=== PATIENT | female | born 1975 | race Caucasian/White ===

== ENCOUNTER 2021-05-07 20:08 | Emergency (ER) | payer OTHER, SELFPAY ==
--- NOTE | ~2021-05-07 | XR_ITS ---
XR chest 2V DATE: 05/07/2021 21:04 INDICATION: Left chest pain radiating to upper back. Shortness of breath with exertion. TECHNIQUE: PA and lateral views COMPARISON: None FINDINGS: Normal heart size. No hilar or mediastinal enlargement. No pulmonary infiltrate or consolidation, pleural effusion or pulmonary vascular congestion or pneumo thorax. Degenerative spurring of the thoracic spine. IMPRESSION: No active cardiopulmonary disease Reviewed, dictated and finalized at location A. HER STRETCHER
[2021-05-07 20:29] VITALS: BP 151/83; PULSE 92; RESP 18; TEMP 37; O2SAT 99
--- NOTE | 2021-05-07 20:35 | ECG_ITS ---
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
[2021-05-07 21:13] LABS: Basophils Percent Auto 0.1 % (0.2-1.2); Eosinophils Percent Auto 0.1 % (0-4.4); Hemoglobin 12.4 g/dL (12.0-15.0); Immature Granulocyte Absolute 0.03 K/mm3 (0.00-0.031); Immature Granulocyte Percent A 0.4 % (0-0.5); Lymphocytes Absolute Auto 2.13 K/mm3 (0.9-3.2); Lymphocytes Percent Auto 26.8 % (18.3-44.2); Mean Corpuscular HGB Conc 32.6 g/dl (32-36); Mean Corpuscular Hemoglobin 30.5 pg (26-34); Mean Corpuscular Volume 93.4 fl (80-100); Mean Platelet Volume 10.4 fl (7.4-10.4); Monocytes Absolute Auto 0.6 K/mm3 (0.1-0.6); Monocytes Percent Auto 7.8 % (2.6-8.5); Neutrophils Absolute Auto 5.1 K/mm3 (1.3-6.7); Neutrophils Percent Auto 64.8 % (45.5-73.1); Platelet Count Result 203 k/mm3 (150-375); Red Blood Count 4.07 M/mm3 (4.2-5.4); Red Cell Distribution Width 12.5 % (11.5-14.5); White Blood Count 7.9 K/mm3 (4.5-10.0)
[2021-05-07 21:24] LABS: Alanine Aminotransferase 16 U/L (4-35); Alkaline Phosphatase 49 U/L (38-126); Anion Gap 6 mmol/L (8-16); Aspartate Amino Transferase 18 U/L (14-36); Bilirubin,Total 0.4 mg/dL (0.2-1.3); Blood Urea Nitrogen 20 mg/dL (7-17); Calcium 8.7 mg/dL (8.4-10.2); Carbon Dioxide 29 mmol/L (22-30); Chloride 100 mmol/L (98-107); Estimated CRCL calculation 96 ml/min; Estimated Glomerular Filt Rate 60; Glucose 102 mg/dL (65-110); Lipase 94 U/L (23-300); Potassium 4.1 mmol/L (3.4-5.0); Sodium 135 mmol/L (137-145)
[2021-05-07 21:27] LABS: INR 0.9; Prothrombin Time 12.5 Seconds (11.1-14.7)
[2021-05-07 21:35] LABS: Troponin I < 0.012 ng/mL (0.000-0.034)
[2021-05-07 23:30] VITALS: BP 132/80; PULSE 94; RESP 20; TEMP 37.1; O2SAT 97
[2021-05-08 01:40] VITALS: BP 128/88; PULSE 71; RESP 18; O2SAT 98
[2021-05-08 02:33] LABS: Troponin I < 0.012 ng/mL (0.000-0.034)
[2021-05-08 03:59] VITALS: BP 137/88; PULSE 86; RESP 16; O2SAT 99
--- NOTE | 2021-05-08 04:01 | ED.GENADULT ---
HPI - General Adult General Chief complaint: Chest Pain Stated complaint: Chest pain, Its pain in my lungs Time Seen by Provider: 05/08/21 02:11 History of Present Illness HPI narrative: Patient is a 43-year-old female presents the emergency department with chief complaint of chest pain. Patient reports over the last several days has been having discomfort in her chest patient states she saw her primary care physician who did a D-dimer and that ended up doing a CTA of her chest. The CTA showed no evidence of pulmonary nihilism reports that there was some granulomatous disease and also noticed possible pulmonary hypertension. 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 Patient states that the symptoms or not improved by anything or they worsened by anything. Related Data Home Medications Medication Instructions Recorded Confirmed diclofenac sodium 75 mg PO BID 05/08/21 05/08/21 esomeprazole magnesium [Nexium] 40 mg PO DAILY 05/08/21 05/08/21 famotidine [Pepcid] 20 mg PO DAILY 05/08/21 05/08/21 valsartan-hydrochlorothiazide 1 tablet PO DAILY 05/08/21 05/08/21 Allergies Allergy/AdvReac Type Severity Reaction Status Date / Time amoxicillin Allergy Unknown Nausea Verified 09/26/16 04:05 chocolate flavor Allergy Unknown Verified 11/24/10 14:25 ranitidine Allergy Unknown Verified 11/24/10 14:25 tramadol Allergy Unknown Itching Verified 09/26/16 04:05 Review of Systems Review of Systems: A 10 system review of systems was completed on the patient and is negative except for what is stated in the HPI. Nursing and ancillary documentation was reviewed. PMFSH Family History Family History Grandparent Cerebrovascular accident Family history of malignant neoplasm of breast Family history of coronary artery disease Diabetes mellitus Mother Family history of diabetes mellitus in first degree relative Social History Social History Alcohol intake: never Exam Narrative: GENERAL: Well-appearing, well-nourished, and in no acute distress. HEAD: Normocephalic, atraumatic. EYES: PERRLA and EOMI. ENT: Nares clear, no rhinorrhea or epistaxis. Mucous membranes moist. NECK: Supple. CHEST: Clear to auscultation. No respiratory distress. HEART: Regular rate and rhythm. No murmur heard. Normal peripheral pulses. ABDOMEN: Soft, nontender, nondistended, normal active bowel sounds. EXTREMITIES: Normal range of motion. No edema. SKIN: Warm, dry, no rash. NEURO: No focal deficits. Alert and oriented x3. PSYCH: Normal mood and affect. Course Course Emergency Course: EKG is sinus rhythm rate of [address] elevation or ST depression Troponin is negative x2 sets Vital Signs Vital signs: Vital Signs Temperature 37.0 C 05/07/21 20:29 Pulse Rate 92 05/07/21 20:29 Respiratory Rate 18 05/07/21 20:29 Blood Pressure 151/83 H 05/07/21 20:29 Pulse Oximetry 99 05/07/21 20:29 Temperature 37.1 C 05/07/21 23:30 Pulse Rate 86 05/08/21 03:59 Respiratory Rate 16 05/08/21 03:59 Blood Pressure 137/88 05/08/21 03:59 Pulse Oximetry 99 05/08/21 03:59 Medical Decision Making Vital Signs Vital Signs: Vital Signs Temperature 37.0 C 05/07/21 20:29 Pulse Rate 92 05/07/21 20:29 Respiratory Rate 18 05/07/21 20:29 Blood Pressure 151/83 H 05/07/21 20:29 Pulse Oximetry 99 05/07/21 20:29 Temperature 37.1 C 05/07/21 23:30 Pulse Rate 86 05/08/21 03:59 Respiratory Rate 16 05/08/21 03:59 Blood Pressure 137/88 05/08/21 03:59 Pulse Oximetry 99 05/08/21 03:59 Lab Data Result diagrams: 05/07/21 20:56 05/07/21 20:56 Labs: Lab Results 05/07/21 05/07/21 05/07/21 Range/Units 20:56 20:56 20:56 WBC 7.9 (4.5-10.0) K/mm3 RBC 4.07 L (4.2-5.4) M/mm3 Hgb 12.4 (12.0
[2021-05-08] MEDS: BELLADONNA ALK/PHENOB ELIX 10 ML, MAG HYDROX/ALUMINUM HYD/SIMETH 30 ML, LIDOCAINE HCL 2... PO (04:24)
[2021-05-08 05:14] VITALS: BP 121/83; PULSE 75; RESP 18; O2SAT 96
== END 2021-05-08 05:14 | disposition home or self-care (01) ==
PROVIDERS: General Practice; Emergency Provider Emergency Medicine; PCP Physician Assistant
DX: R07.89 Other chest pain (principal); R94.31 Abnormal electrocardiogram [ECG] [EKG]
CPT/HCPCS: 36415; 71046; 80053; 83690; 84484; 85025; 85610; 85730; 93005; 99284; A9270

== ENCOUNTER 2024-01-18 18:42 | Emergency (ER) | payer OTHER, SELFPAY ==
--- NOTE | ~2024-01-18 | XR_ITS ---
EXAMINATION: XR knee LT min 4V DATE: 01/18/2024 21:29 INDICATION: Left knee injury. TECHNIQUE: 4 views of left knee were obtained. COMPARISON: None. FINDINGS: Bone alignment is normal. No fracture. There is moderate osteoarthritis of medial and watt lofemoral compartments and mild osteoarthritis of lateral compartment. No knee joint effusion. IMPRESSION: 1. Moderate left knee osteoarthritis. Reviewed, dictated and finalized at location A.
[2024-01-18 18:47] VITALS: BP 146/83; PULSE 73; RESP 18; TEMP 36.6; O2SAT 100
--- NOTE | 2024-01-18 21:29 | ED.GENADULT ---
HPI - General Adult General Chief complaint: Extremity Injury, Lower Stated complaint: left knee injury Time Seen by Provider: 01/18/24 21:18 History of Present Illness HPI narrative: Patient is a 49-year-old female who presents to the emergency department this evening complaining of left knee pain. Patient states that she does have known arthritis in her left knee and was going up the stairs when she heard a popping noise. Patient states that she tried ice the left knee but was still having and wanted to come in and have her knee checked out. Patient states that she does have an orthopedic appointment in a few days as well. Denies any falls or head injuries. Patient is able to ambulate and put weight on her left lower extremity. No additional symptoms or concerns at this time. Related Data Home Medications Medication Instructions Recorded Confirmed diclofenac sodium 75 mg 75 mg PO BID 05/08/21 05/08/21 tablet,delayed release esomeprazole magnesium 40 mg 40 mg PO DAILY 05/08/21 05/08/21 capsule,delayed release (Nexium) famotidine 40 mg tablet (Pepcid) 20 mg PO DAILY 05/08/21 05/08/21 valsartan 160 1 tablet PO DAILY 05/08/21 05/08/21 mg-hydrochlorothiazide 12.5 mg tablet Allergies Allergy/AdvReac Type Severity Reaction Status Date / Time amoxicillin Allergy Unknown Nausea Verified 01/18/24 18:49 chocolate flavor Allergy Unknown Unknown Verified 01/18/24 18:49 ranitidine Allergy Unknown Unknown Verified 01/18/24 18:49 tramadol Allergy Unknown Itching Verified 01/18/24 18:49 Review of Systems Review of Systems: All systems are reviewed and are negative unless stated otherwise in the HPI. [facility] Family History Family History Grandparent Cerebrovascular accident Family history of malignant neoplasm of breast Family history of coronary artery disease Diabetes mellitus Mother Family history of diabetes mellitus in first degree relative Social History Social History Alcohol intake: never Exam Narrative: General: Alert, awake, afebrile, in no acute distress. HEENT: PERRL, no rhinorrhea, no post nasal drip, oropharynx clear. Cardiovascular: Regular rate and rhythm, no murmurs, rubs or gallops, no peripheral edema. Respiratory: Clear to auscultation bilaterally, no tachypnea, no wheezing, no rhonchi, no rubs, no respiratory distress. Abdomen: Soft, nontender, nondistended, no rebound, no guarding, no peritoneal signs. Musculoskeletal: No joint swelling or deformity, normal muscle tone, intact left knee flexion and extension. Skin: No rashes or petechia, no signs of infection. Neurological: Alert and oriented to person, place, and time. Follows all commands. No focal deficits, speech is clear and fluent. Course Vital Signs Vital signs: Vital Signs Temperature 98 F 01/18/24 18:47 Pulse Rate 73 01/18/24 18:47 Respiratory Rate 18 01/18/24 18:47 Blood Pressure 146/83 H 01/18/24 18:47 Pulse Oximetry 100 01/18/24 18:47 Oxygen Delivery Room Air 01/18/24 18:47 Temperature 98 F 01/18/24 18:47 Pulse Rate 73 01/18/24 18:47 Respiratory Rate 18 01/18/24 18:47 Blood Pressure 146/83 H 01/18/24 18:47 Pulse Oximetry 100 01/18/24 18:47 Oxygen Delivery Room Air 01/18/24 18:47 Medical Decision Making MDM Narrative Medical decision making narrative: The patient was evaluated by myself in the emergency department. History is obtained from patient who is an independent historian and physical exam was performed. External medical records were reviewed at this time. Patient was administered 15 mg of IM Toradol for pain at this time. Imaging studies obtained included left knee x-ray which was independently interpreted by me revealing moderate left knee arthritis, otherwise no acute process, which is pending final radiology interpretation. Sarah
[2024-01-18] MEDS: KETOROLAC 15 MG/ML VIAL (*BKC) IM (21:42)
== END 2024-01-18 21:46 | disposition home or self-care (01) ==
LOC: ANHED 21:43
PROVIDERS: Emergency Provider Emergency Medicine; PCP Physician Assistant
DX: M23.92 Unspecified internal derangement of left knee (principal); M17.12 Unilateral primary osteoarthritis, left knee
CPT/HCPCS: 73564; 96372; 99283; J1885